=== PATIENT | female | born 1995 | race Caucasian/White ===

== ENCOUNTER 2016-02-26 10:42 | Emergency (ER) | payer MEDICAID, OTHER ==
[~2016-02-26] VITALS: Ht 167.6 cm; Wt 61.5 kg
[~2016-02-26 10:42] MED LIST: LEXA10TA PO
[2016-02-26 10:45] VITALS: BP 115/72; PULSE 61; RESP 20; TEMP 98.9; O2SAT 100
[2016-02-26] MEDS ORDERED: SODIUM CHLOR 0.9% 1000 ML INJ 1,000 ML IV SCH (10:58)
[2016-02-26] MEDS ORDERED: SODIUM CHLORIDE 0.9% FLUSH 5 ML FLUSH IVF PRN (11:00)
[2016-02-26 11:15] LABS: AUTOMATED NEUTROPHIL # 7.1 TH/MM3 (1.8-7.7); BASOPHIL % 0.4 % (0.0-2.0); EOSINOPHIL # 0.1 TH/MM3 (0-0.4); EOSINOPHIL % 0.6 % (0.0-4.0); HEMATOCRIT 37.8 % (35.0-46.0); LYMPH % 10.9 % (9.0-44.0); LYMPHOCYTE # 0.9 TH/MM3 (1.0-4.8); MEAN CELL VOLUME 84.7 FL (80.0-100.0); MEAN CORPUSCULAR HEMOGLOBIN 28.8 PG (27.0-34.0); MONO % 6.8 % (0.0-8.0); NEUT % 81.3 % (16.0-70.0); PLATELET COUNT 310 TH/MM3 (150-450); RED BLOOD COUNT 4.47 MIL/MM3 (4.00-5.30); RED CELL DISTRIBUTION WIDTH 13.3 % (11.6-17.2); WHITE BLOOD COUNT 8.7 TH/MM3 (4.0-11.0)
[2016-02-26] MEDS ORDERED: ONDANSETRON HCL 4 MG/2 ML VIAL IV PUSH ONE (11:15)
[2016-02-26] MEDS ORDERED: KETOROLAC TROMETHAMINE 30 MG/ML (IVP) VIAL IV PUSH ONE (11:15)
[2016-02-26 11:18] LABS: HEMO FLAGS DIFF FINAL
[2016-02-26 11:20] VITALS: O2SAT 98
[2016-02-26 11:22] LABS: CHLORIDE 107 MEQ/L (98-107); POTASSIUM 3.9 MEQ/L (3.5-5.1); SODIUM (NA) 141 MEQ/L (136-145)
[2016-02-26] MEDS ORDERED: CYCL1TAB29 PO (11:25)
[2016-02-26 11:26] LABS: ANION GAP 10 MEQ/L (5-15); APTT (PATIENT) 22.9 SEC (24.3-30.1); BICARBONATE 24.5 MEQ/L (21.0-32.0); BLOOD UREA NITROGEN 10 MG/DL (7-18); PROTHROMBIN TIME - PATIENT 10.9 SEC (9.8-11.6)
[2016-02-26 11:29] LABS: ALT (GPT) 13 U/L (10-53); AST (GOT) 16 U/L (15-37); GLOMERULAR FILTRATION RATE 86 ML/MIN (>89)
[2016-02-26 11:30] LABS: TOTAL BILIRUBIN ADULT 0.4 MG/DL (0.2-1.0)
[2016-02-26 11:32] LABS: ALKALINE PHOSPHATASE 43 U/L (45-117)
[2016-02-26 11:34] LABS: BETA HCG QUANT LESS THAN 1 MIU/ML (0-5)
[2016-02-26] MEDS ORDERED: IOHEXOL 350 MG/ML 10 ML VIAL (for RAD DIAG) IV ONE (12:02)
--- NOTE | 2016-02-26 12:22 | RADHPO ---
EXAM DATE/TIME: 02/26/2016 11:53 [facility] COMPARISON: No previous studies available for comparison. INDICATIONS : Periumbilical pain. Nausea and vomiting. IV CONTRAST: 75 cc Omnipaque 350 (iohexol) IV ORAL CONTRAST: No oral contrast ingested. RADIATION DOSE: 5.63 CTDIvol (mGy) MEDICAL HISTORY : None SURGICAL HISTORY : None. ENCOUNTER: Initial ACUITY: 1 day PAIN SCALE: 8/10 LOCATION: Umbilical TECHNIQUE: Volumetric scanning of the abdomen and pelvis was performed. Using automated exposure control and ad justment of the mA and/or kV according to patient size, radiation dose was kept as low as reasonably achievable to obtain optimal diagnostic quality images. FINDINGS: LOWER LUNGS: The visualized lower lungs are clear. LIVER: Homogeneous density without lesion. There is no dilation of the biliary tree. No calcified gallston es. There is some nonspecific mild periportal edema. SPLEEN: Normal size without lesion. PANCREAS: Within normal limits. KIDNEYS: Normal in size and shape. There is no mass, stone or hydronephrosis. ADRENAL GLANDS: Within normal limits. VASCULAR: There is no aortic aneurysm. BOWEL/MESENTERY: The stomach, small bowel, and colon demonstrate no acute abnormality. There is no free intraperitone al air or fluid. The appendix is normal. No inflammatory changes are seen. ABDOMINAL WALL: Within normal limits. RETROPERITONEUM: There is no lymphadenopathy. BLADDER: No wall thickening or mass. REPRODUCTIVE: Within normal limits. There is a trace of fluid in the cul-de-sac. INGUINAL: There is no lymphadenopathy or hernia. MUSCULOSKELETAL: Within normal limits for patient age. Mild curvature of the lumbar spine to the left. CONCLUSION: 1. Mild nonspecific periportal edema. 2. Trace of fluid in the cul-de-sac. 3. Mild scoliosis with curvature of the lumbar spine to the left. Srinivasa Ferguson MD on February 26, 2016 at 12:17 Board Certified Radiologist. This report was verified electronically.
[2016-02-26] MEDS ORDERED: PROMETHAZINE INJ 25 MG/ML VIAL IM ONE (12:30)
[2016-02-26 12:31] VITALS: BP 106/69; PULSE 82; RESP 16; O2SAT 98
--- NOTE | 2016-02-26 13:11 | RADHPO ---
EXAM DATE/TIME: 02/26/2016 12:15 [facility] COMPARISON: No previous studies available for comparison. INDICATIONS : Pelvic pain. MEDICAL HISTORY : Pelvic pain. SURGICAL HISTORY : None. ENCOUNTER: Initial ACUITY: 1 day PAIN SCORE: 4/10 LOCATION: Bilateral pelvis MEASUREMENTS: UTERUS: 8.0 x 3.3 x 5.4 cm ENDOMETRIAL STRIPE: 7 mm RIGHT OVARY: 2.7 x 1.6 x 1.6 cm LEFT OVARY: 2.4 x 1.3 x 2.2 cm FINDINGS: UTERUS: The myometrium has homogeneous echotexture without mass. The endometrial cavity is empty. RIGHT OVARY: small cyst right ovary measuring 1.3 cm.. There is evidence of blood flow. LEFT OVARY: Ovary contains no mass or significant cystic lesion. There is evidence of blood flow. MISCELLANEOUS: No free fluid. CONCLUSION: 1. Small right ovarian cyst measuring 1.3 cm. 2. Otherwise, unremarkable examination. Srinivasa Ferguson MD on February 26, 2016 at 13:08 Board Certified Radiologist. This report was verified electronically.
[2016-02-26 13:32] LABS: GLUCOSE,URINE NEG (NEG); KETONE, URINE NEG (NEG); NITRITE,URINE NEG (NEG)
[2016-02-26 13:35] LABS: BLOOD, URINE MOD (NEG)
[2016-02-26 13:43] LABS: BACTERIA, URINE RARE /hpf; COMMENT (UR) CULT NOT INDICATED; CULTURE IF INDICATED CULT NOT INDICATED; RBC, URINE 0-3 /hpf (0-3); URINE COLOR YELLOW (YELLW/STRAW)
[2016-02-26] MEDS ORDERED: DICYCLOMINE HCL 20 MG/2 ML VIAL IM ONE (13:45)
[2016-02-26] MEDS ORDERED: MORPHINE SULFATE 4 MG/ML INJ IV PUSH ONE (14:30)
[2016-02-26] MEDS ORDERED: LORazepam 2 MG/ML VIAL IM ONE (14:30)
[2016-02-26] MEDS ORDERED: PROM1SUP7 RECTAL (14:54)
[2016-02-26] MEDS ORDERED: ZOFR4TAB3 SL (14:54)
--- NOTE | 2016-02-26 14:54 | PD ---
HPI Chief Complaint: Abdominal Pain Time Seen by Provider: 10:58 Travel History International Travel<30 days: No Contact w/Intl Traveler<30days: No Traveled to known affect area: No History of Present Illness HPI Patient is a 20 year old female presents to the emergency department with superpubic abdominal pain, n/v for the past few hours. Patient denies any close sick contacts, denies any fevers. Does endorse being on her period now. States nausea is intense and pain is moderate, sharp in nature, non-radiating. On arrival patient appears quite uncomfortable, dry heaves. PFSH Past Medical History Asthma: No Anxiety: Yes Depression: Yes Cancer: No Cardiovascular Problems: No Diabetes: No Diminished Hearing: No Endocrine: No Gastrointestinal Disorders: No Genitourinary: No Headaches: Yes Immune Disorder: No Implanted Vascular Access Dvce: No Musculoskeletal: No Neurologic: No Psychiatric: Yes Respiratory: No Immunizations Current: Yes ?: Not LMP: states started bleeding today, lmp 01/29/16 : 0 Para: 0 Miscarriage: 0 : 0 Past Surgical History Surgical History: No Previous Surgery Other Surgery: No Social History Alcohol Use: No Tobacco Use: Yes (3-4 CIGARETTES/WEEK) Substance Use: No (MARIJUANA IN PAST) Allergies-Medications (Allergen,Severity, Reaction): Coded Allergies: No Known Allergies (Verified , 02/26/16) Reported Meds & Prescriptions Reported Meds & Active Scripts Active Phenergan Supp (Promethazine HCl) 25 Mg Supp 25 Mg RECTAL Q6H PRN Zofran Odt (Ondansetron Odt) 4 Mg Tab 4 Mg SL Q6HR PRN Reported Flexeril (Cyclobenzaprine HCl) 10 Mg Tab 10 Mg PO TID PRN Review of Systems Except as stated in HPI: all other systems reviewed are Neg Physical Exam Narrative GENERAL: WD/WN, appears pale and actively dry heaving. Appears to be in some pain. SKIN: Warm and dry. HEAD: Atraumatic. Normocephalic. EYES: Pupils equal and round. No scleral icterus. No injection or drainage. ENT: No nasal bleeding or discharge. Mucous membranes pink and moist. NECK: Trachea midline. No JVD. CARDIOVASCULAR: Regular rate and rhythm. RESPIRATORY: No accessory muscle use. Clear to auscultation. Breath sounds equal bilaterally. GASTROINTESTINAL: Abdomen soft, moderately tender in superpubic region, nondistended. Hepatic and splenic margins not palpable. : Exam performed with female nurse steam roller operator at all times. Uterine tenderness without adenexal tenderness. No vaginal bleeding seen. NO discharge. No CMT. Normal external genitalia. MUSCULOSKELETAL: Extremities without clubbing, cyanosis, or edema. No obvious deformities. NEUROLOGICAL: Awake and alert. No obvious cranial nerve deficits. Motor grossly within normal limits. Five out of 5 muscle strength in the arms and legs. Normal speech. PSYCHIATRIC: Appropriate mood and affect; insight and judgment normal. Data Data Last Documented VS Vital Signs Date Time Temp Pulse Resp B/P Pulse Ox O2 Delivery O2 Flow Rate FiO2 02/26/16 14:56 74 18 112/78 98 Room Air 02/26/16 10:45 98.9 Orders Urinalysis - C+S If Indicated (02/26/16 10:48) Ed Urine Pregnancytest Poc (02/26/16 10:48) Beta Hcg (Quant/Titer) (02/26/16 10:58) Complete Blood Count With Diff (02/26/16 10:58) Comprehensive Metabolic Panel (02/26/16 10:58) Lipase (02/26/16 10:58) Lactic Acid (02/26/16 10:58) Prothrombin Time / Inr (Pt) (02/26/16 10:58) Act Partial Throm Time (Ptt) (02/26/16 10:58) Iv Access Insert/Monitor (02/26/16 10:58) Ecg Monitoring (02/26/16 10:58) Oximetry (02/26/16 10:58) Sodium Chlor 0.9% 1000 Ml Inj (Ns 1000 M (02/26/16 10:58) Sodium Chloride 0.9% Flush (Ns Flush) (02/26/16 11:00) Ed Poc Ultrasound (02/26/16 11:00) Us Pelvis Comp W Doppler (02/26/16 11:02) Ct Abd/Pel W Iv Contrast(Rout) (02/26/16 ) Ketorolac Inj (Toradol Inj) (02/26/16 11:15) Ondansetron Inj (Zofran Inj) (02/26/16 11:15) Iohexol 350 Inj (Omnipaque 350 Inj) (02/26/16 12:02) Promethazine Inj (Phenergan Inj) (02/26/16 12:30) Dicyclomine Inj (Bentyl Inj) (02/26/16 13:45) Lorazepam Inj (Ativan Inj) (02/26/16 14:30) Morphine Inj (Morphine Inj) (02/26/16 14:30) Labs Laboratory Tests Test 02/26/16 02/26/16 11:07 13:28 White Blood Count 8.7 TH/MM3 Red Blood Count 4.47 MIL/MM3 Hemoglobin 12.9 GM/DL Hematocrit 37.8 % Mean Corpuscular Volume 84.7 FL Mean Corpuscular Hemoglobin 28.8 PG Mean Corpuscular Hemoglobin 34.0 % Concent Red Cell Distribution Width 13.3 % Platelet Count 310 TH/MM3 Mean Platelet Volume 7.8 FL Neutrophils (%) (Auto) 81.3 % Lymphocytes (%) (Auto) 10.9 % Monocytes (%) (Auto) 6.8 % Eosinophils (%) (Auto) 0.6 % Basophils (%) (Auto) 0.4 % Neutrophils # (Auto) 7.1 TH/MM3 Lymphocytes # (Auto) 0.9 TH/MM3 Monocytes # (Auto) 0.6 TH/MM3 Eosinophils # (Auto) 0.1 TH/MM3 Basophils # (Auto) 0.0 TH/MM3 CBC Comment DIFF FINAL Differential Comment Prothrombin Time 10.9 SEC Prothromb Time International 1.0 RATIO Ratio Activated Partial 22.9 SEC Thromboplast Time Sodium Level 141 MEQ/L Potassium Level 3.9 MEQ/L Chloride Level 107 MEQ/L Carbon Dioxide Level 24.5 MEQ/L Anion Gap 10 MEQ/L Blood Urea Nitrogen 10 MG/DL Creatinine 0.83 MG/DL Estimat Glomerular Filtration 86 ML/MIN Rate Random Glucose 140 MG/DL Lactic Acid Level 1.6 mmol/L Calcium Level 8.4 MG/DL Total Bilirubin 0.4 MG/DL Aspartate Amino Transf 16 U/L (AST/SGOT) Alanine Aminotransferase 13 U/L (ALT/SGPT) Alkaline Phosphatase 43 U/L Total Protein 7.7 GM/DL Albumin 3.9 GM/DL Lipase 90 U/L Human Chorionic Gonadotropin, LESS THAN 1 Quant MIU/ML Urine Color YELLOW Urine Turbidity CLEAR Urine pH 8.0 Urine Specific [place] GREATER THAN 1.035 Urine Protein NEG mg/dL Urine Glucose (UA) NEG mg/dL Urine Ketones NEG mg/dL Urine Occult Blood MOD Urine Nitrite NEG Urine Bilirubin NEG Urine Leukocyte Esterase NEG Urine RBC 0-3 /hpf Urine WBC 3-5 /hpf Urine Squamous Epithelial 6-8 /hpf Cells Urine Bacteria RARE /hpf Microscopic Urinalysis Comment CULT NOT INDICATED MDM Medical Decision Making Medical Screen Exam Complete: Yes Emergency Medical Condition: Yes Differential Diagnosis Torsion, Appendicitis, Kidney stone, UTI, , Rupture ectopic. Narrative Course Patient 20-year-old female presents with suprapubic pain and intractable nausea and vomiting. Initial workup including ultrasound CT and lab work is unremarkable. Patient test is negative. She has been given multiple nausea medications and continues to vomit even Gatorade. She was given normal saline 1 L fluid bolus. I discussed with her she needs to strongly consider being admitted for intractable nausea and vomiting and at this time she would like to go home as her ailing father could pass any days he is on hospice and she wants to be with him. I will prescribe Zofran and Phenergan and discussed if she is unable to keep fluids down at home she needs to return to the emergency department. Procedures Procedure Narrative BS US: No free fluid in abdomen. No IUP seen. Performed to rule out rupture ectopic. Diagnosis Primary Impression: Nausea and vomiting Qualified Code: R11.2 - Intractable vomiting with nausea, unspecified vomiting type Admitting Information Admitting Physician Requests: Admit Patient Instructions: Acute Nausea and Vomiting (DC), General Instructions Med/Other Pt SpecificInfo: Prescription(s) given Scripts Promethazine Supp (Phenergan Supp)25 Mg Supp25 Mg RECTAL Q6H PRN (NAUSEA OR VOMITING) #20 SUPP Ref 0 Prov:Pascual Jara MD 02/26/16 Ondansetron Odt (Zofran Odt)4 Mg Tab4 Mg SL Q6HR PRN (Nausea/Vomiting) #30 TAB Ref 0 Prov:Pascual Jara MD 02/26/16 Disposition: 01 DISCHARGE HOME Condition: Stable Pascual Jara MD Feb 26, 2016 14:54
[2016-02-26 14:56] VITALS: BP 112/78; PULSE 74; RESP 18; O2SAT 98
== END 2016-02-26 15:37 | disposition home or self-care (01) ==
LOC: PHED 10:42
DX: R11.2 Nausea with vomiting, unspecified (principal); R10.33 Periumbilical pain
CPT/HCPCS: 74177; 76856; 80053; 81001; 83605; 83690; 84702; 85025; 85610; 85730; 93975; 96361; 96372; 96374; 96375; 99284; J0500; J1885; J2060; J2270; J2405; J2550; J7030; Q9967